=== PATIENT | female | born 1995 | race American Indian/Alaskan Native ===

== ENCOUNTER 2019-12-11 15:06 | Emergency (ER) | payer BC ==
[2019-12-11 15:17] VITALS: BP 116/82
--- NOTE | 2019-12-11 16:16 | Emergency Department Report ---
Blank Doc - Documentation Documentation: 24-year-old female that presents with vaginal discharge and pelvic pain. This initial assessment/diagnostic orders/clinical plan/treatment(s) is/are subject to change based on patient's health status, clinical progression and re- assessment by fellow clinical providers in the ED. Further treatment and workup at subsequent clinical providers discretion. Patient/guardians urged not to elope from the ED as their condition may be serious if not clinically assessed and managed. Initial orders include: 1- Patient sent to [facility] for further evaluation and treatment 2- UA
[2019-12-11 17:05] LABS: HCG Qualitative,Urine Negative (Negative)
[2019-12-11 17:07] LABS: Bacteria,Urine 1+ /HPF (Negative); Bilirubin,Urine NEG (Negative); Blood,Urine LG (Negative); Color,Urine Straw (Yellow); Mucus,Urine FEW /HPF; Protein,Urine <15 mg/dL mg/dL (Negative); Urobilinogen,Urine < 2.0 mg/dL (<2.0)
[2019-12-11 17:08] LABS: RBC,Urine > 182.0 /HPF (0.0-6.0)
--- NOTE | 2019-12-11 17:37 | Emergency Department Report ---
ED Female HPI - General Chief complaint: Abdominal Pain Stated complaint: ABD PAIN Time Seen by Provider: 12/11/19 16:15 Source: patient Mode of arrival: Ambulatory Limitations: No Limitations - History of Present Illness Initial comments: Patient is 24 years old female with no significant past medical history. Patient presented to the ER complaining of pelvic pain, crampy in nature with no radiation associated with vaginal bleeding. Patient stated that she has been having the vaginal bleeding for approximately 2 to 3 months however the pelvic pain get worse in the last few days. Patient denied any fever or chills. She also denied any upper abdominal pain, nausea or vomiting. No diarrhea. MD Complaint: vaginal bleeding, pelvic pain -: days(s), month(s) Radiation: suprapubic, LLQ Severity scale (0 -10): 5 Are you Now?: No - Related Data Allergies Allergy/AdvReac Type Severity Reaction Status Date / Time No Known Allergies Allergy Unverified 12/11/19 15:16 ED Review of Systems ROS: Stated complaint: ABD PAIN Other details as noted in HPI Comment: All other systems reviewed and negative Constitutional: denies: chills, fever Respiratory: denies: cough, shortness of breath, SOB with exertion Cardiovascular: denies: chest pain, palpitations Gastrointestinal: denies: abdominal pain, nausea, vomiting, diarrhea, constipation, hematemesis, melena, hematochezia Genitourinary: abnormal menses. denies: urgency, dysuria, frequency Musculoskeletal: denies: back pain Neurological: denies: headache, weakness, numbness, paresthesias, confusion ED Past Medical Hx - Past Medical History Previous Medical History?: No - Surgical History Past Surgical History?: No - Social History Smoking Status: Never Smoker Substance Use Type: None ED Physical Exam - General Limitations: No Limitations General appearance: alert, in no apparent distress - Head Head exam: Present: atraumatic, normocephalic, normal inspection - Eye Eye exam: Present: normal appearance, PERRL - ENT ENT exam: Present: normal exam, normal orophraynx, mucous membranes moist - Neck Neck exam: Present: normal inspection, full ROM. Absent: tenderness, meningismus, lymphadenopathy, thyromegaly - Respiratory Respiratory exam: Present: normal lung sounds bilaterally - Cardiovascular Cardiovascular Exam: Present: regular rate, normal rhythm, normal heart sounds - GI/Abdominal GI/Abdominal exam: Present: soft, normal bowel sounds. Absent: distended, tenderness, guarding, rebound, rigid, organomegaly, mass, bruit, pulsatile mass, hernia - Extremities Exam Extremities exam: Present: normal inspection, full ROM, normal capillary refill. Absent: tenderness, pedal edema, joint swelling, calf tenderness - Back Exam Back exam: Present: normal inspection, full ROM. Absent: CVA tenderness (R), CVA tenderness (L) - Neurological Exam Neurological exam: Present: alert, oriented X3, CN II-XII intact, normal gait, reflexes normal. Absent: motor sensory deficit - Psychiatric Psychiatric exam: Present: normal mood - Skin Skin exam: Present: warm, intact, normal color ED Course Vital Signs 12/11/19 15:17 Temperature 98.2 F Pulse Rate 80 Respiratory 16 Rate Blood Pressure 116/82 [Right] O2 Sat by Pulse 98 Oximetry ED Medical Decision Making - Lab Data Result diagrams: 12/11/19 17:55 12/11/19 17:55 - Medical Decision Making Patient is 24 years old female with no significant past medical history. Patient presented to the ER complaining of pelvic pain, crampy in nature with no radiation associated with vaginal bleeding. Patient stated that she has been having the vaginal bleeding for approximately 2 to 3 months however the pelvic pain get worse in the last few days. Patient denied any fever or chills. She also denied any upper abdominal pain, nausea or vomiting. No diarrhea. Labs reviewed and is unremarkable. Patient refused ultrasound of pelvis stating that she wanted to go home. Patient is not giving any explanation for her decision. Patient is alert oriented x3 no acute distress and able to make sound decision no criteria for involuntary hold. Patient given discharge order and advised to follow-up with her primary doctor in the next 2 to 3 days for further management. Critical care attestation.: If time is entered above; I have spent that time in minutes in the direct care of this critically ill patient, excluding procedure time. ED Disposition Clinical Impression: Pelvic pain, Vaginal bleeding Disposition: DC-01 TO HOME OR SELFCARE Is pt being admited?: No Condition: Stable Instructions: Abdominal Pain (ED) Referrals: PRIMARY CARE, [Primary Care Provider] - 3-5 Days Forms: Work/School Release Form(ED)
[2019-12-11 18:10] LABS: Basophils % (Auto) 0.4 % (0.0-1.8); Eosinophils # (Auto) 0.4 K/mm3 (0.0-0.4); Eosinophils % (Auto) 6.3 % (0.0-4.3); Hematocrit 36.1 % (30.3-42.9); Hemoglobin 12.1 gm/dl (10.1-14.3); Lymphocytes # (Auto) 2.1 K/mm3 (1.2-5.4); Lymphocytes % (Auto) 31.5 % (13.4-35.0); Mean Corpuscular HGB Conc 33 % (30-34); Mean Corpuscular Volume 85 fl (79-97); Monocytes # (Auto) 0.5 K/mm3 (0.0-0.8); Monocytes % (Auto) 7.4 % (0.0-7.3); Platelet Count 201 K/mm3 (140-440); Red Blood Count 4.26 M/mm3 (3.65-5.03); Red Cell Distribution Width 14.8 % (13.2-15.2)
[2019-12-11 18:23] LABS: INR 0.94 (0.87-1.13)
[2019-12-11 18:24] LABS: Partial Thromboplastin Time 33.2 Sec. (24.2-36.6)
[2019-12-11 18:30] LABS: Blood Urea Nitrogen 9 mg/dL (7-17); Hemolysis Index 11
[2019-12-11 18:32] LABS: BUN/Creatinine Ratio 13
== END 2019-12-11 20:51 | disposition home or self-care (01) ==
LOC: ED 15:06
DX: R10.2 Pelvic and perineal pain (principal); N93.9 Abnormal uterine and vaginal bleeding, unspecified
CPT/HCPCS: 36415; 80048; 81001; 81025; 85025; 85610; 85730

== ENCOUNTER 2019-12-31 16:29 | Emergency (ER) | payer BC ==
[2019-12-31 16:41] VITALS: BP 113/74
[2019-12-31] MEDS ORDERED: IBUPROFEN 800 MG TAB PO ONE (18:24)
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
== END 2019-12-31 19:15 | disposition home or self-care (01) ==
LOC: ED 16:29
DX: M94.0 Chondrocostal junction syndrome [Tietze] (principal); Z79.899 Other long term (current) drug therapy; V49.49XA Driver injured in collision with other motor vehicles in traffic accident, initial encounter; Y93.89 Activity, other specified; Y92.410 Unspecified street and highway as the place of occurrence of the external cause; Y99.8 Other external cause status
CPT/HCPCS: 99282

== ENCOUNTER 2020-08-02 14:13 | Emergency (ER) | payer BC, OTHER ==
--- NOTE | 2020-08-02 16:37 | XRay Report ---
CHEST 2 VIEWS INDICATION / CLINICAL INFORMATION: Chest pain with cough. COMPARISON: None available. FINDINGS: SUPPORT DEVICES: None. HEART / MEDIASTINUM: No significant abnormality. LUNGS / PLEURA: No significant pulmonary or pleural abnormality. No pneumothorax. ADDITIONAL FINDINGS: No significant additional findings. IMPRESSION: 1. No acute findings. Signer Name: Mat Maynard MD Signed: 08/02/2020 4:33 PM Workstation Name: [id number]
--- NOTE | 2020-08-02 17:15 | Emergency Department Report ---
- General Chief Complaint: Dyspnea/Respdistress Stated Complaint: BAD COUGH, CHEST PAIN, MIGRAINE Time Seen by Provider: 08/02/20 16:58 Source: patient Mode of arrival: Ambulatory Limitations: No Limitations - History of Present Illness Initial Comments: Patient is a 25-year-old female presents emergency room with complaints of a cough with clear mucus that began 2 weeks ago. She states that she has chest discomfort due to frequent coughing. She denies any fever, vomiting, diarrhea, shortness of breath, pleuritic chest pain, sore throat, ear pain. She denies any known sick contacts or recent travel. 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 She denies any past medical history. No allergies to medications. She states that she is a current tobacco user. - Related Data Previous Rx's Medication Instructions Recorded Last Taken Type Naproxen [Naprosyn] 500 mg PO BID PRN #14 tablet 12/31/19 Unknown Rx methOCARBAMOL [Robaxin TAB] 1,500 mg PO TID PRN #20 tablet 12/31/19 Unknown Rx Benzonatate [Tessalon Perles] 100 mg PO Q8HR PRN #12 capsule 08/02/20 Unknown Rx Loratadine 10 mg PO DAILY #30 tablet 08/02/20 Unknown Rx Prednisone [predniSONE 10 mg 10 mg PO .TAPER #1 tab.ds.pk 08/02/20 Unknown Rx (6-Day Pack, 21 Tabs)] guaiFENesin ER [Mucinex ER] 600 mg PO Q12H #14 tablet.er 08/02/20 Unknown Rx Allergies Allergy/AdvReac Type Severity Reaction Status Date / Time No Known Allergies Allergy Unverified 12/11/19 15:16 ED Review of Systems ROS: Stated complaint: BAD COUGH, CHEST PAIN, MIGRAINE Other details as noted in HPI Comment: All other systems reviewed and negative ED Past Medical Hx - Past Medical History Previous Medical History?: No - Surgical History Past Surgical History?: No - Social History Smoking Status: Never Smoker Substance Use Type: Alcohol - Medications Home Medications: Home Medications Medication Instructions Recorded Confirmed Last Taken Type Naproxen [Naprosyn] 500 mg PO BID PRN #14 tablet 12/31/19 Unknown Rx methOCARBAMOL [Robaxin TAB] 1,500 mg PO TID PRN #20 tablet 12/31/19 Unknown Rx Benzonatate [Tessalon Perles] 100 mg PO Q8HR PRN #12 capsule 08/02/20 Unknown Rx Loratadine 10 mg PO DAILY #30 tablet 08/02/20 Unknown Rx Prednisone [predniSONE 10 mg 10 mg PO .TAPER #1 tab.ds.pk 08/02/20 Unknown Rx (6-Day Pack, 21 Tabs)] guaiFENesin ER [Mucinex ER] 600 mg PO Q12H #14 tablet.er 08/02/20 Unknown Rx ED Physical Exam - General Limitations: No Limitations General appearance: alert, in no apparent distress - Head Head exam: Present: atraumatic, normocephalic - Eye Eye exam: Present: normal appearance - ENT ENT exam: Present: normal orophraynx, mucous membranes moist, TM's normal bilaterally, normal external ear exam - Respiratory Respiratory exam: Present: normal lung sounds bilaterally. Absent: respiratory distress, wheezes, rales, rhonchi, stridor, chest wall tenderness, accessory muscle use, decreased breath sounds, prolonged expiratory - Cardiovascular Cardiovascular Exam: Present: regular rate, normal rhythm, normal heart sounds. Absent: systolic murmur, diastolic murmur, rubs, gallop - Neurological Exam Neurological exam: Present: alert, oriented X3 - Psychiatric Psychiatric exam: Present: normal affect, normal mood - Skin Skin exam: Present: warm, dry, intact ED Course Vital Signs 08/02/20 08/02/20 14:25 18:07 Temperature 98.9 F Pulse Rate 93 H 88 Respiratory 17 16 Rate Blood Pressure 105/65 134/88 [Right] O2 Sat by Pulse 99 100 Oximetry ED Medical Decision Making - Radiology Data Radiology results: report reviewed Ordering Physician: PATRICK MANCINI Date of Service: 08/02/20 Procedure(s): XR chest routine 2V Accession Number(s): [id number] cc: PATRICK MANCINI Fluoro Time In Minutes: CHEST 2 VIEWS INDICATION / CLINICAL INFORMATION: Chest pain with cough. COMPARISON: None available. FINDINGS: SUPPORT DEVICES: None. HEART / MEDIASTINUM: No significant abnormality. LUNGS / PLEURA: No significant pulmonary or pleural abnormality. No pneumothorax. ADDITIONAL FINDINGS: No significant additional findings. IMPRESSION: 1. No acute findings. Signer Name: Mat Maynard MD Signed: 08/02/2020 4:33 PM Workstation Name: [id number] Transcribed By: SIMON Dictated By: Mat Maynard MD Electronically Authenticated By: Mat Maynard MD Signed Date/Time: 08/02/201632 DD/ 31 TD/TT: - Medical Decision Making Patient is a 25-year-old female presents emergency room with complaints of a cough with clear mucus that began 2 weeks ago. She states that she has chest discomfort due to frequent coughing. She denies any fever, vomiting, diarrhea, shortness of breath, pleuritic chest pain, sore throat, ear pain. She denies any known sick contacts or recent travel. 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 She denies any past medical history. No allergies to medications. She states that she is a current tobacco user. Vitals are normal. Breath sounds are clear bilaterally, no wheezing, no rales, no rhonchi. CXR: 1. No acute findings. Patient has no clinical signs of bacte rial pneumonia or bacterial bronchitis. Symptoms and examination appear most consistent with viral URI versus allergies versus viral bronchitis. Patient given prescription for medications. Advised patient Please take medication as prescribed. Follow-up with your primary care doctor. Return to emergency room for new or worsening symptoms. Critical care attestation.: If time is entered above; I have spent that time in minutes in the direct care of this critically ill patient, excluding procedure time. ED Disposition Clinical Impression: Viral bronchitis Disposition: DC-01 TO HOME OR SELFCARE Is pt being admited?: No Does the pt Need Aspirin: No Condition: Stable Instructions: Acute Bronchitis, Adult, [id number], Chronic Bronchitis (ED) Additional Instructions: Please take medication as prescribed. Follow-up with your primary care doctor. Return to emergency room for new or worsening symptoms. Prescriptions: Loratadine 10 mg PO DAILY #30 tablet guaiFENesin ER [Mucinex ER] 600 mg PO Q12H #14 tablet.er Prednisone [predniSONE 10 mg (6-Day Pack, 21 Tabs)] 10 mg PO .TAPER #1 tab.ds.pk Benzonatate [Tessalon Perles] 100 mg PO Q8HR PRN #12 capsule PRN Reason: cough Referrals: SHERLEY SAUNDERS MD [Staff Physician] - 2-[address] [facility] [Provider Group] - 2-3 Days TEENA PENG MD [Staff Physician] - 2-3 Days Forms: Work/School Release Form(ED) Time of Disposition: 17:11 Print Language: CROATIAN
[2020-08-02 18:08] VITALS: BP 134/88
== END 2020-08-02 17:30 | disposition home or self-care (01) ==
LOC: ED 14:13
DX: J20.8 Acute bronchitis due to other specified organisms (principal); B97.89 Other viral agents as the cause of diseases classified elsewhere; Z79.899 Other long term (current) drug therapy
CPT/HCPCS: 71046

== ENCOUNTER 2020-09-30 21:46 | Emergency (ER) | payer SELFPAY ==
[2020-09-30 23:11] VITALS: BP 109/77
[2020-09-30 23:51] LABS: Bacteria,Urine 1+ /HPF (Negative); Bilirubin,Urine NEG (Negative); Blood,Urine SM (Negative); Color,Urine Yellow (Yellow); Mucus,Urine FEW /HPF; Protein,Urine <15 mg/dL mg/dL (Negative); Urobilinogen,Urine < 2.0 mg/dL (<2.0)
[2020-10-01 00:27] LABS: HCG Qualitative,Urine Negative (Negative)
--- NOTE | 2020-10-01 00:54 | Emergency Department Report ---
ED Female HPI - General Chief complaint: Urogenital-Female Stated complaint: BURNING WHEN PEEING Source: patient Mode of arrival: Ambulatory Limitations: No Limitations - History of Present Illness Initial comments: Patient is a nulliparous 25-year-old -[place] female with no past medical history presents to the ED with complaint of acute onset persistent dysuria, urinary frequency and urgency and suprapubic pressure for the last 2 days. Patient states that symptoms have been persistent especially in the last 12 hours. Patient states that about 6 hours ago she noticed some hematuria with the dysuria when she tried to void urine. Patient denies fever, chills, nausea and vomiting, diarrhea, abdominal pain, low back pain, vaginal discharge, dyspareunia or sore throat and cough. MD Complaint: dysuria, pelvic pain (Suprapubic pressure), other (Urinary frequency and urgency) -: Sudden, days(s) (2) Location: suprapubic Radiation: non-radiating Severity: severe Severity scale (0 -10): 7 Quality: cramping Consistency: constant Improves with: none Worsens with: urination Are you Now?: No Last Menstrual Period: 09/21/20 EDC: 06/28/21 Associated Symptoms: denies other symptoms, abdominal pain (Suprapubic pressure), dysuria, hematuria, other (Urinary frequency and urgency). denies: vaginal discharge, vaginal bleeding, nausea/vomiting, fever/chills, headaches, loss of appetite, rash, seizure, shortness of breath, syncope, weakness - Related Data Sexually active: Yes : 0 Para: 0 A: 0 Previous Rx's Medication Instructions Recorded Last Taken Type Naproxen [Naprosyn] 500 mg PO BID PRN #14 tablet 12/31/19 Unknown Rx methOCARBAMOL [Robaxin TAB] 1,500 mg PO TID PRN #20 tablet 12/31/19 Unknown Rx Benzonatate [Tessalon Perles] 100 mg PO Q8HR PRN #12 capsule 08/02/20 Unknown Rx Loratadine 10 mg PO DAILY #30 tablet 08/02/20 Unknown Rx Prednisone [predniSONE 10 mg 10 mg PO .TAPER #1 tab.ds.pk 08/02/20 Unknown Rx (6-Day Pack, 21 Tabs)] guaiFENesin ER [Mucinex ER] 600 mg PO Q12H #14 tablet.er 08/02/20 Unknown Rx Ibuprofen [Motrin] 600 mg PO Q8H PRN #20 tablet 10/01/20 Unknown Rx Phenazopyridine [Pyridium] 200 mg PO Q12H #20 tab 10/01/20 Unknown Rx Sulfamethoxazole/Trimethoprim 1 each PO Q12H #20 tablet 10/01/20 Unknown Rx [Bactrim DS TAB] Allergies Allergy/AdvReac Type Severity Reaction Status Date / Time No Known Allergies Allergy Unverified 12/11/19 15:16 ED Review of Systems ROS: Stated complaint: BURNING WHEN PEEING Other details as noted in HPI Constitutional: denies: chills, fever Eyes: denies: eye pain, eye discharge, vision change ENT: denies: ear pain, throat pain Respiratory: denies: cough, shortness of breath, wheezing Cardiovascular: denies: chest pain, palpitations Endocrine: no symptoms reported Gastrointestinal: abdominal pain (Suprapubic pressure). denies: nausea, vomiting, diarrhea Genitourinary: urgency, dysuria, frequency, hematuria. denies: discharge Musculoskeletal: denies: back pain, joint swelling, arthralgia Skin: denies: rash, lesions Neurological: denies: headache, weakness, paresthesias Psychiatric: denies: anxiety, depression Hematological/Lymphatic: denies: easy bleeding, easy bruising ED Past Medical Hx - Past Medical History Previous Medical History?: No - Surgical History Past Surgical History?: No - Social History Smoking Status: Never Smoker Substance Use Type: Alcohol - Medications Home Medications: Home Medications Medication Instructions Recorded Confirmed Last Taken Type Naproxen [Naprosyn] 500 mg PO BID PRN #14 tablet 12/31/19 Unknown Rx methOCARBAMOL [Robaxin TAB] 1,500 mg PO TID PRN #20 tablet 12/31/19 Unknown Rx Benzonatate [Tessalon Perles] 100 mg PO Q8HR PRN #12 capsule 08/02/20 Unknown Rx Loratadine 10 mg PO DAILY #30 tablet 08/02/20 Unknown Rx Prednisone [predniSONE 10 mg 10 mg PO .TAPER #1 tab.ds.pk 08/02/20 Unknown Rx (6-Day Pack, 21 Tabs)] guaiFENesin ER [Mucinex ER] 600 mg PO Q12H #14 tablet.er 08/02/20 Unknown Rx Ibuprofen [Motrin] 600 mg PO Q8H PRN #20 tablet 10/01/20 Unknown Rx Phenazopyridine [Pyridium] 200 mg PO Q12H #20 tab 10/01/20 Unknown Rx Sulfamethoxazole/Trimethoprim 1 each PO Q12H #20 tablet 10/01/20 Unknown Rx [Bactrim DS TAB] ED Physical Exam - General Limitations: No Limitations General appearance: alert, in no apparent distress - Head Head exam: Present: atraumatic, normocephalic, normal inspection - Eye Eye exam: Present: normal appearance, PERRL, EOMI Pupils: Present: normal accommodation - ENT ENT exam: Present: normal exam, normal orophraynx, mucous membranes moist, TM's normal bilaterally, normal external ear exam - Neck Neck exam: Present: normal inspection, full ROM - Respiratory Respiratory exam: Present: normal lung sounds bilaterally. Absent: respiratory distress, wheezes, rales, rhonchi, chest wall tenderness, accessory muscle use, decreased breath sounds, other - Cardiovascular Cardiovascular Exam: Present: regular rate, normal rhythm, normal heart sounds. Absent: systolic murmur, diastolic murmur, rubs, gallop - GI/Abdominal GI/Abdominal exam: Present: soft, normal bowel sounds. Absent: tenderness, guarding, rebound, hyperactive bowel sounds, hypoactive bowel sounds, organomegaly - Bi-manual exam: Present: other (Pelvic exam deferred at this time) - Extremities Exam Extremities exam: Present: normal inspection, full ROM, normal capillary refill - Back Exam Back exam: Present: normal inspection, full ROM. Absent: tenderness, CVA tenderness (L), muscle spasm, paraspinal tenderness, vertebral tenderness - Neurological Exam Neurological exam: Present: alert, oriented X3, CN II-XII intact, normal gait, reflexes normal - Psychiatric Psychiatric exam: Present: normal affect, normal mood - Skin Skin exam: Present: warm, dry, intact, normal color. Absent: rash ED Course Vital Signs 09/30/20 23:10 Temperature 98.0 F Pulse Rate 85 Respiratory 16 Rate Blood Pressure 109/77 O2 Sat by Pulse 98 Oximetry ED Medical Decision Making - Medical Decision Making This is a nulliparous 25-year-old -[place] female with no past medical history presents to the ED with complaint of acute onset persistent dysuria, urinary frequency and urgency and suprapubic pressure for the last 2 days. Patient states that symptoms have been persistent especially in the last 12 hours. Patient states that about 6 hours ago she noticed some hematuria with the dysuria when she tried to void urine. In the ED, patient is alert and oriented x3 and is not in any distress. Patient is hemodynamically stable. Urinalysis showed significant urinary tract infection with a positive nitrite. Patient was therefore discharged home on antibiotics and advised to follow-up with her primary care physician in 7 to 10 days for reevaluation. Patient is advised return to the ED immediately if symptoms get worse. - Differential Diagnosis UTI; ; STD Critical care attestation.: If time is entered above; I have spent that time in minutes in the direct care of this critically ill patient, excluding procedure time. ED Disposition Clinical Impression: Acute urinary tract infection, Dysuria Disposition: HOME / SELF CARE / HOMELESS Is pt being admited?: No Does the pt Need Aspirin: No Condition: Stable Instructions: Urinary Tract Infection, Adult, [id number] Additional Instructions: Your urinalysis showed significant urinary tract infection. Therefore take medications with food, drink plenty of fluids and follow-up with the primary care physician in 7 to 10 days for reevaluation. Return to the ED immediately if symptoms get worse. Prescriptions: Sulfamethoxazole/Trimethoprim [Bactrim DS TAB] 1 each PO Q12H #20 tablet Ibuprofen [Motrin] 600 mg PO Q8H PRN #20 tablet PRN Reason: Pain Phenazopyridine [Pyridium] 200 mg PO Q12H #20 tab Referrals: [facility] [Provider Group] - 3-5 Days Time of Disposition: 00:55 Print Language: CUBAN
== END 2020-10-01 01:06 | disposition home or self-care (01) ==
LOC: ED 21:46
DX: N39.0 Urinary tract infection, site not specified (principal); Z72.89 Other problems related to lifestyle; Z79.899 Other long term (current) drug therapy
CPT/HCPCS: 81001; 81025; 99283